=== PATIENT | male | born 1995 | race Hispanic/Latino ===

== ENCOUNTER 2020-07-25 12:36 | Emergency (ER) | payer SELFPAY ==
[~2020-07-25] VITALS: Ht 175.3 cm; Wt 104.5 kg
[~2020-07-25 12:36] MED LIST: AMOXICILLIN500 MG OR; UNSURE OF MEDS
[2020-07-25 13:50] VITALS: BP 152/88
== END 2020-07-25 13:50 | disposition home or self-care (01) | DRG 605 ==
LOC: ED 12:36
DX: S80.01XA Contusion of right knee, initial encounter (principal); S90.01XA Contusion of right ankle, initial encounter; W31.89XA Contact with other specified machinery, initial encounter